=== PATIENT | female | born 1995 | race Caucasian/White ===

== ENCOUNTER 2017-03-13 17:15 | Emergency (ER) | payer BC ==
[~2017-03-13] VITALS: Ht 160 cm; Wt 68.0 kg
[2017-03-13 17:17] VITALS: BP 155/84
== END 2017-03-13 18:15 | disposition home or self-care (01) ==
LOC: M ED 18:12
DX: Z04.1 Encounter for examination and observation following transport accident (principal); Z3A.31 31 weeks gestation of pregnancy

== ENCOUNTER → 2017-04-13 | Outpatient (REF) | payer OTHER | LOC: M LAB REF 13:15 | PROVIDERS: ATTEND Advanced Practice Midwife | DX: Z34.83 Encounter for supervision of other normal pregnancy, third trimester (principal) ==

== ENCOUNTER → 2017-04-14 | Outpatient (REF) | payer OTHER ==
[2017-04-14 14:03] LABS: MEAN CORPUSCULAR HEMOGLOBIN 30.4 pg (27.0-33.0); MEAN CORPUSCULAR HGB CONC 34.9 g/dl (32.0-36.5); MEAN CORPUSCULAR VOLUME 87.2 fl (80.0-96.0); RED CELL DISTRIBUTION WIDTH 13.8 % (11.5-14.5); WHITE BLOOD COUNT 7.4 K/mm3 (4.0-10.0)
[2017-04-14 14:31] LABS: ALT/SGPT 10 U/L (12-78); AST/SGOT 17 U/L (15-37); BILIRUBIN,TOTAL 0.2 MG/DL (0.2-1.0); CREATININE FOR GFR 0.68 MG/DL (0.55-1.02); GLOMERULAR FILTRATION RATE > 60.0 (>60); URIC ACID 5.7 MG/DL (2.6-6.0)
[2017-04-14 14:37] LABS: CREATININE, SERUM 0.7 MG/DL (0.6-1.0)
[2017-04-14 14:41] LABS: CREATININE CLEARANCE, URINE 119.1 ML/MIN (75-115)
== END ==
LOC: M LAB REF 13:37
PROVIDERS: ATTEND Advanced Practice Midwife
DX: O16.3 Unspecified maternal hypertension, third trimester (principal); Z34.83 Encounter for supervision of other normal pregnancy, third trimester

== ENCOUNTER 2017-04-25 13:04 | Outpatient (CLI) | payer OTHER ==
[~2017-04-25] VITALS: Ht 160 cm; Wt 70.0 kg
[2017-04-25 13:18] VITALS: BP 137/89
[2017-04-25] MEDS ORDERED: PRENTAB9 PO (13:33)
== END 2017-04-25 14:27 | disposition home or self-care (01) ==
LOC: M LDO 13:04
PROVIDERS: ATTEND Obstetrics & Gynecology
DX: O47.1 False labor at or after 37 completed weeks of gestation (principal); Z3A.37 37 weeks gestation of pregnancy

== ENCOUNTER 2017-05-06 02:36 | Inpatient (IN) | payer OTHER ==
[2017-05-06] VITALS (42 sets, daily range): BP systolic 118–165; BP diastolic 76–111
[~2017-05-06] VITALS: Ht 157.5 cm; Wt 72.0 kg
[~2017-05-06 02:36] MED LIST: PRENTAB9 PO
[2017-05-06 04:53] LABS: MEAN CORPUSCULAR HEMOGLOBIN 29.2 pg (27.0-33.0); MEAN CORPUSCULAR HGB CONC 33.6 g/dl (32.0-36.5); MEAN CORPUSCULAR VOLUME 87.1 fl (80.0-96.0); RED CELL DISTRIBUTION WIDTH 13.5 % (11.5-14.5); WHITE BLOOD COUNT 8.2 K/mm3 (4.0-10.0)
[2017-05-06 05:04] LABS: ALBUMIN 2.5 GM/DL (3.2-5.2); ALBUMIN/GLOBULIN RATIO 0.69 (1.00-1.93); ALKALINE PHOSPHATASE 225 U/L (45-117); ALT/SGPT 13 U/L (12-78); ANION GAP 7 MEQ/L (8-16); AST/SGOT 31 U/L (15-37); BILIRUBIN,TOTAL 0.2 MG/DL (0.2-1.0); BLOOD UREA NITROGEN 13 MG/DL (7-18); CALCIUM LEVEL 8.5 MG/DL (8.5-10.1); CARBON DIOXIDE LEVEL 24 MEQ/L (21-32); CHLORIDE LEVEL 109 MEQ/L (98-107); CREATININE FOR GFR 0.67 MG/DL (0.55-1.02); GLOMERULAR FILTRATION RATE > 60.0 (>60); GLUCOSE, FASTING 77 MG/DL (70-105); POTASSIUM SERUM 4.2 MEQ/L (3.5-5.1); SODIUM LEVEL 140 MEQ/L (136-145); TOTAL PROTEIN 6.1 GM/DL (6.4-8.2); URIC ACID 6.7 MG/DL (2.6-6.0)
[2017-05-06] MEDS ORDERED: LACTATED RINGER'S 1000 ML IV STA (06:24)
[2017-05-06] MEDS ORDERED: LR 1,000 ML IV SCH (06:24)
[2017-05-06] MEDS ORDERED: OXYTOCIN DRIP 30 UNITS in APPROPRIATE DILUENT 1 EA IV SCH ×2 (06:45→16:39)
[2017-05-06] MEDS ORDERED: PROMETHAZINE INJ 25 MG/ML VIAL (J2550) IV ONE (06:45)
[2017-05-06] MEDS ORDERED: BUTORPHANOL 2 MG/ML INJ (J0595) IV ONE (06:45)
[2017-05-06] MEDS ORDERED: FENTANYL 2MCG/ML ROPIVACAINE 0.2% IN 0.9% NACL 200ML IVBAG As Ordered ONE (10:13)
[2017-05-06] MEDS ORDERED: diphenhydrAMINE INJ 50MG/ML VIAL (J1200) IV PRN (11:00)
[2017-05-06] MEDS ORDERED: LACTATED RINGER'S 1000 ML IV PRN (11:00)
[2017-05-06] MEDS ORDERED: REFRIGERATOR IV KEYS XX PRN (11:00)
[2017-05-06] MEDS ORDERED: FENTANYL/ROPIVACAINE/NACL BAG 200 ML EPIDURAL SCH (11:00)
[2017-05-06] MEDS ORDERED: EPIDURAL/PCA KEYS XX PRN (11:00)
[2017-05-06] MEDS ORDERED: EPIDURAL COMMENT XX SCH (11:00)
[2017-05-06] MEDS ORDERED: ePHEDrine SULFATE 25 MG/5 ML(5MG/ML) SYRINGE IV PRN (11:00)
[2017-05-06] MEDS ORDERED: NALOXONE INJ 0.4 MG/1 ML VIAL (J2310) IV PRN (11:00)
[2017-05-06] MEDS ORDERED: ONDANSETRON 4MG/2ML VIAL (J2405) IV PRN (11:00)
[2017-05-06] MEDS ORDERED: RHOGAM 300 MCG (1500 IU) INJ (J2790) IM SCH (16:45)
[2017-05-06] MEDS ORDERED: MEASLES,MUMPS,RUBELLA VACCINE INJ (MMR-II) (90707) SC SCH (16:45)
[2017-05-06] MEDS ORDERED: DOCUSATE SODIUM 100 MG CAP PO PRN (16:45)
[2017-05-06] MEDS ORDERED: ACETAMINOPHEN 500 MG TAB PO PRN (16:45)
[2017-05-06] MEDS ORDERED: DIBUCAINE 1% OINTMENT 30GM TOP PRN (16:45)
--- NOTE | 2017-05-06 16:55 | DN ---
DATE: 05/06/2017 Louise is a 22-year-old, 1, para 1-0-0-1 now, who was admitted to labor and delivery with premature rupture of membranes. Intravenous (IV) Pitocin was started and labor did ensue. She did utilize an epidural for her labor coping. She progressed to complete dilation at 1558. She pushed to a normal spontaneous vaginal delivery of a live male infant in occiput anterior (OA) position with restitution to left occiput transverse (LOT) position at 1615. There was a nuchal cord loose that was reduced manually. There was a mild shoulder dystocia relieved immediately by Camron position. Shoulders then delivered, anterior followed by posterior. Corpus immediately followed. placed on maternal abdomen crying and active. His mouth and nares were bulb suctioned. The cord was clamped times two and cut by the father of the baby. A spontaneous expulsion of an intact placenta with 3-vessel cord by Barragan mechanism was at 1626. Uterine hemostasis achieved with IV Pitocin rapid infusion and uterine fundal massage. Estimated blood loss 350 mL. Perineum and vagina inspected and noted to have bilateral labial lacerations. They were repaired with #3-0 Rapide in the usual fashion. The male weighed at 3562 grams, 7 pounds 14 ounces, scores 7 and 9. Mom plans to breastfeed her son, and the family have named him Raji. moving all extremities without difficulty. At the close of delivery, lap counts, needle counts, and instrument counts were correct and verified. [facility]
[2017-05-06] MEDS: IBUPROFEN 800 MG TAB PO PRN (21:50)
[2017-05-07] MEDS: IBUPROFEN 800 MG TAB PO PRN ×2 (06:07→17:46)
[2017-05-07 06:15] VITALS: BP 136/92
[2017-05-07] MEDS: PRENATAL VITAMIN TAB PO SCH (08:55)
[2017-05-07 18:00] VITALS: BP 136/84
[2017-05-08 06:00] VITALS: BP 143/94
[2017-05-08] MEDS: PRENATAL VITAMIN TAB PO SCH (08:59)
[2017-05-08] MEDS ORDERED: IBUP-1114 PO (10:37)
[2017-05-08] MEDS ORDERED: PRENTAB9 PO (10:37)
[2017-05-08] MEDS ORDERED: ACET50TA PO (10:37)
== END 2017-05-08 11:05 | disposition home or self-care (01) | DRG 775 ==
LOC: M LDO 02:36 → M LDI 02:45 → M OBS 17:59
PROVIDERS: ADMIT Obstetrics & Gynecology; ATTEND Obstetrics & Gynecology
PROC: 10E0XZZ Delivery of Products of Conception, External Approach (ICD-10-PCS; principal; 2017-05-06)
PROC: 0HQ9XZZ Repair Perineum Skin, External Approach (ICD-10-PCS; 2017-05-06)
DX: O66.0 Obstructed labor due to shoulder dystocia (principal); Z37.0 Single live birth; Z3A.39 39 weeks gestation of pregnancy; O69.82X0 Labor and delivery complicated by other cord entanglement, without compression, not applicable or unspecified; O70.0 First degree perineal laceration during delivery

== ENCOUNTER 2017-05-14 19:38 | Emergency (ER) | payer OTHER ==
[~2017-05-14] VITALS: Ht 160 cm; Wt 63.7 kg
[~2017-05-14 19:38] MED LIST changes: +ACET50TA PO; +IBUP-1114 PO
[2017-05-14] MEDS ORDERED: BACT800T5 PO (20:56)
[2017-05-14] MEDS: BACTRIM 160MG/800MG DS TAB PO ONE (21:00)
[2017-05-14 21:18] VITALS: BP 140/85
== END 2017-05-14 21:19 | disposition home or self-care (01) ==
LOC: M ED 20:13
DX: N30.00 Acute cystitis without hematuria (principal); Z79.899 Other long term (current) drug therapy

== ENCOUNTER → 2017-05-23 | Outpatient (REF) | payer OTHER ==
[~2017-05-23] MED LIST changes: +BACT800T5 PO; +MACR100C3 PO
[2017-05-23 14:24] LABS: MICROSCOPIC INDICATED? MAN YES (NO)
[2017-05-23 14:39] LABS: BACTERIA, URINE MOD AMOUNT; RBC, URINE TNTC /hpf (0-3); SQUAMOUS EPITHELIAL CELL URINE MOD AMOUNT /hpf (SMALL AMT); WBC, URINE 40-50 /hpf (0-3)
[2017-05-23 14:40] LABS: HYALINE CAST, URINE NONE SEEN /lpf (0-1); MICROSCOPIC EXAM PERFORMED
== END ==
LOC: M LAB REF 13:02
PROVIDERS: ATTEND Physician Assistant
DX: R30.0 Dysuria (principal)

== ENCOUNTER 2017-05-24 22:28 | Emergency (ER) | payer OTHER ==
[~2017-05-24] VITALS: Ht 160 cm; Wt 63.7 kg
[2017-05-24 22:28] VITALS: BP 133/94
[~2017-05-24 22:28] MED LIST changes: -MACR100C3 PO
[2017-05-24] MEDS ORDERED: MACR100C3 PO (22:56)
[2017-05-24] MEDS ORDERED: NITROFURANTOIN (MACROBID) 100 MG CAP PO ONE (23:00)
== END 2017-05-24 23:07 | disposition home or self-care (01) ==
LOC: M ED 22:28
DX: N39.0 Urinary tract infection, site not specified (principal)